=== PATIENT | female | born 2000 | race Hispanic/Latino ===

== ENCOUNTER 2020-09-27 11:33 | Emergency (ER) | payer MEDICAID ==
[~2020-09-27] VITALS: Ht 152.4 cm; Wt 68.9 kg
[2020-09-27 11:37] VITALS: BP 114/73
== END 2020-09-27 14:00 | disposition left against medical advice (07) ==
LOC: EDH 11:33
DX: R10.9 Unspecified abdominal pain (principal); Z53.21 Procedure and treatment not carried out due to patient leaving prior to being seen by health care provider

== ENCOUNTER 2022-03-12 20:12 | Observation (INO) | payer MEDICAID ==
[~2022-03-12] VITALS: Ht 152.4 cm; Wt 89.3 kg
[2022-03-12 20:42] VITALS: BP 113/70
[2022-03-12 21:23] LABS: APPEARANCE,URINE CLOUDY (CLEAR); BILIRUBIN,URINE NEGATIVE (NEGATIVE); COLOR,URINE LIGHT-YELLOW (YELLOW); GLUCOSE, URINE (UA) 500 mg/dL (NEGATIVE); KETONES,URINE 5 mg/dL (NEGATIVE); LEUKOCYTE ESTERASE ,URINE 500 Leu/uL (NEGATIVE); NITRATE,URINE NEGATIVE (NEGATIVE); OCCULT BLOOD,URINE NEGATIVE (NEGATIVE); PROTEIN,URINE NEGATIVE (NEGATIVE); UROBILINOGEN,URINE 0.2 mg/dL (0.2-1.0)
[2022-03-12 21:26] LABS: BACTERIA,URINE RARE /HPF (None Seen); MUCUS,URINE RARE LPF (None Seen); SQUAMOUS EPITHELIAL CELL,UR MOD /HPF (0-2)
[2022-03-12 21:30] LABS: AMPHET/METH SCREEN,URINE NEGATIVE (NEGATIVE); BARBITURATE SCREEN, URINE NEGATIVE (NEGATIVE); BENZODIAZEPINES SCREEN,URINE NEGATIVE (NEGATIVE); CANNABINOID SCREEN,URINE NEGATIVE (NEGATIVE); COCAINE SCREEN,URINE NEGATIVE (NEGATIVE); OPIATE SCREEN,URINE NEGATIVE (NEGATIVE); PHENCYCLIDINE SCREEN,URINE NEGATIVE (NEGATIVE)
[2022-03-12] MEDS ORDERED: CEFTRIAXONE 1G VIAL IM ONE (22:30)
[2022-03-12] MEDS ORDERED: CEFTRIAXONE 1G VIAL IVP ONE (22:30)
[2022-03-12] MEDS ORDERED: CEFTRIAXONE 1G VIAL ONE (22:33)
[2022-03-12] MEDS ORDERED: LIDOCAINE HCL-MPF 1% 2ML VIAL ONE (22:36)
[2022-03-12] MEDS ORDERED: LIDOCAINE HCL-MPF 1% 2ML VIAL IM SCH (23:30)
== END 2022-03-12 23:05 | disposition home or self-care (01) ==
LOC: EDH 20:12 → LDH 20:13
PROVIDERS: ADMIT Obstetrics & Gynecology; ATTEND Obstetrics & Gynecology
DX: O99.891 Other specified diseases and conditions complicating pregnancy (principal); M54.50 Low back pain, unspecified; R10.30 Lower abdominal pain, unspecified; Z3A.27 27 weeks gestation of pregnancy
CPT/HCPCS: 59025; 96372; 80305; 87088; 81001; G0378 ×2; J0696; J3490